=== PATIENT | male | born 1970 | race Hispanic/Latino ===

== ENCOUNTER 2021-03-16 20:48 | Emergency (ER) | payer OTHER ==
[~2021-03-16 20:48] MED LIST: LEVO50TA4 PO; METH-812 PO
[2021-03-16] MEDS ORDERED: IBUPROFEN 400 MG TABLET ONE (23:28)
== END 2021-03-17 00:02 | disposition home or self-care (01) ==
LOC: EDH 20:48
DX: S46.201A Unspecified injury of muscle, fascia and tendon of other parts of biceps, right arm, initial encounter (principal); I10 Essential (primary) hypertension; E03.9 Hypothyroidism, unspecified; Z79.899 Other long term (current) drug therapy; X50.0XXA Overexertion from strenuous movement or load, initial encounter; Y93.89 Activity, other specified; Y92.89 Other specified places as the place of occurrence of the external cause; Y99.8 Other external cause status
CPT/HCPCS: 99282